=== PATIENT | female | born 1960 ===

== ENCOUNTER 2019-03-05 12:47 | Outpatient (CLI) | payer OTHER ==
[~2019-03-05 12:47] MED LIST: ACETAMINOPHEN; CITROMAX; [UNRECOGNIZED DRUG - OTHER]
== END 2019-03-25 09:17 | disposition home or self-care (01) ==
LOC: RAD 12:47
DX: J45.998 Other asthma (principal); R07.89 Other chest pain

== ENCOUNTER 2022-09-16 15:07 | Outpatient (CLI) | payer OTHER | END 2022-09-16 15:17 | disposition home or self-care (01) | LOC: PPH VACUNA 15:07 | PROVIDERS: ATTEND Emergency Medicine Pediatric Emergency Medicine | DX: Z23 Encounter for immunization (principal) ==

== ENCOUNTER 2024-01-01 11:39 | Outpatient (CLI) | payer OTHER | END 2024-01-01 12:20 | disposition home or self-care (01) | LOC: RAD 11:39 | PROVIDERS: ATTEND Radiology Diagnostic Radiology | DX: M54.16 Radiculopathy, lumbar region (principal) ==

== ENCOUNTER → 2024-09-17 | Outpatient (CLI) | payer OTHER | END | disposition home or self-care (01) | LOC: RAD 09:02 | PROVIDERS: ATTEND Radiology Diagnostic Radiology | DX: R05.1 Acute cough (principal) ==